=== PATIENT | female | born 1980 ===

== ENCOUNTER 2019-05-21 08:07 | Day surgery (SDC) | payer OTHER ==
[2019-05-21] MEDS ORDERED: PROPOFOL 10 MG/ML VIAL IV ONE (08:08)
[2019-05-21] MEDS ORDERED: LIDOCAINE 2% MDV (20MG/ML) 20ML VIAL IV ONE (08:08)
--- NOTE | 2019-05-22 06:40 | Operative Note ---
OPERATION: COLONOSCOPY with ileal biopsy and photo. PREOPERATIVE DIAGNOSIS: Crohn's. POSTOPERATIVE DIAGNOSES: 1. Ileitis. 2. Normal colon. COMPLICATIONS: None apparent. PREPARATION QUALITY: Good to excellent. ESTIMATED BLOOD LOSS: Minimum. SPECIMENS: Ileum. PROCEDURE: After informed consent was obtained from the patient, she was placed in the left lateral decubitus position in the endoscopy suite, sedated and monitored by the department of anesthesia. Digital rectal examination was unremarkable. A well-lubricated [id number] colonoscope was inserted into the rectum and advanced to the cecum. The cecum was unremarkable. The ileocecal valve and appendiceal orifice appeared normal. The ileocecal valve was cannulated revealing some mild ileal inflammation with superficial ulcerations and erythema. Biopsies and photographs were taken. The cecum, cecal bulb, ileocecal valve, appendiceal orifice, ascending colon, transverse colon, descending colon, sigmoid colon, and rectum were carefully inspected. No polyps, mass lesions, or inflammation was seen throughout the length of the colon. J-turn views of the anorectum were unremarkable. The endoscope was straightened, the rectal ampulla deflated, and the endoscope was removed. RECOMMENDATIONS: The patient should resume her medications and diet and follow up with her specialist at [facility]. It should be noted that she did apparently have approval for starting Stelara. We will await recommendations from the surgical team at [facility] before initiating a biologic. As always, thank you for allowing me to participate in the healthcare of your patients. DAE
== END 2019-05-21 10:15 | disposition home or self-care (01) ==
LOC: HOP 08:07
PROVIDERS: ATTEND Internal Medicine Gastroenterology
DX: K50.00 Crohn's disease of small intestine without complications (principal)
CPT/HCPCS: 81025

== ENCOUNTER 2019-06-10 16:08 | Emergency (ER) | payer OTHER ==
--- NOTE | 2019-06-10 18:34 | Emergency Department Record ---
History of Present Illness - General Chief Complaint: Wound, check Stated Complaint: SURGERY WOUND REOPENING Time Seen by Provider: 06/10/19 18:21 Source: Patient, RN notes reviewed - History of Present Illness Initial Comments: patient has a small dehisence in the umbilical area of abdomen and no drainage she states it feels like it is pulling apart and her stables came out yesterday by her family Dr Astudillo and her surgery was done at the [facility] 2 weeks ago for resection of small bowel for a a stricture after Crohn's disease. This is her third abdominal surgery. Onset/Timin -: Hour(s) Initial Visit For: Laceration Returns Today for: Other Associated Symptoms: None - Related Data Home Medications Medication Instructions Recorded Confirmed Last Taken Azathioprine [Imuran] 175 mg PO DAILY 06/10/19 06/10/19 06/09/19 Diphenhydramine HCl [Benadryl] 75 mg PO QHS 06/10/19 06/10/19 06/09/19 Melatonin 10 mg PO QHS 06/10/19 06/10/19 06/09/19 Methocarbamol [Robaxin] 500 mg PO BID 06/10/19 06/10/19 06/10/19 Omeprazole 40 mg PO DAILY 06/10/19 06/10/19 06/09/19 Ondansetron HCl [Zofran] 4 mg PO DAILY PRN 06/10/19 06/10/19 06/09/19 Oxycodone HCl 5 mg PO QID 06/10/19 06/10/19 06/10/19 Valacyclovir HCl [Valacyclovir] 1,000 mg PO DAILY 06/10/19 06/10/19 06/09/19 Previous Rx's Medication Instructions Recorded Clindamycin HCl 300 mg PO Q8HR #30 capsule 06/10/19 Allergies Allergy/AdvReac Type Severity Reaction Status Date / Time cefazolin [From Kefzol] AdvReac FLUSHING Verified 06/10/19 17:28 infliximab [From Remicade] AdvReac FATIGUE Verified 06/10/19 17:28 meperidine [From Demerol] AdvReac FLUSHING Verified 06/10/19 17:28 metronidazole [From Flagyl] AdvReac FLUSHING Verified 06/10/19 17:28 Travel/Exposure Screening - Travel/Exposure Within Last 30 Days Have you traveled within the last 30 days?: Yes Additional Travel Detail:: [place] - Travel/Exposure Within Last Year Have you traveled outside the [place] in the last year?: No - Additonal Travel/Exposure Details Have you been exposed to anyone with a communicable illness?: No - Travel Symptoms Symptom Screening: None Review of Systems Reviewed: No additional complaints except as noted below Constitutional: Reports: As per HPI. Denies: Chills, Fever, Malaise, Night sweats, Weakness, Weight change Eyes: Reports: As per HPI. Denies: Eye discharge, Eye pain, Photophobia, Vision change ENT: Reports: As per HPI. Denies: Congestion, Dental pain, Ear pain, Epistaxis, Hearing loss, Throat pain Respiratory: Reports: As per HPI. Denies: Cough, Dyspnea, Hemoptysis, Stridor, Wheezes Cardiovascular: Reports: As per HPI. Denies: Arrhythmia, Chest pain, Dyspnea on exertion, Edema, Murmurs, Orthopnea, Palpitations, Paroxysmal nocturnal dyspnea, Rheumatic Fever, Syncope Endocrine: Reports: As per HPI. Denies: Fatigue, Heat or cold intolerance, Polydipsia, Polyuria Gastrointestinal: Reports: As per HPI. Denies: Abdominal pain, Constipation, Diarrhea, Hematemesis, Hematochezia, Melena, Nausea, Vomiting Genitourinary: Reports: As per HPI. Denies: Abnormal menses, Discharge, Dyspareunia, Dysuria, Frequency, Hematuria, Incontinence, Retention, Urgency Musculoskeletal: Reports: As per HPI. Denies: Arthralgia, Back pain, Gout, Joint swelling, Myalgia, Neck pain Skin: Reports: As per HPI. Denies: Bruising, Change in color, Change in hair/nails, Lesions, Pruritus, Rash Neurological: Reports: As per HPI. Denies: Abnormal gait, Confusion, Headache, Numbness, Paresthesias, Seizure, Tingling, Tremors, Vertigo, Weakness Psychiatric: Reports: As per HPI. Denies: Anxiety, Auditory hallucinations, De pression, Homicidal thoughts, Suicidal thoughts, Visual hallucinations Hematological/Lymphatic: Reports: As per HPI. Denies: Anemia, Blood Clots, Easy bleeding, Easy bruising, Swollen glands Past Medical History - SOCIAL HISTORY Smoking Status: Former smoker Alcohol Use: Occasional Drug Use: None - RESPIRATORY Hx Respiratory Disorders: No - CARDIOVASCULAR Hx Cardio Disorders: No - NEURO Hx Neuro Disorders: No - GI Hx GI Disorders: Yes Hx Crohn's Disease: Yes Hx Reflux: Yes Hx Ulcer: Yes - Hx Genitourinary Disorders: Yes Hx Kidney Stones: Yes - ENDOCRINE Hx Endocrine Disorders: No - MUSCULOSKELETAL Hx Musculoskeletal Disorders: No - PSYCH Hx Psych Problems: No - HEMATOLOGY/ONCOLOGY Hx Hematology/Oncology Disorders: Yes Hx Blood Transfusions: Yes Hx Blood Transfusion Reaction: No Family Medical History Any Significant Family History?: No Physical Exam - General General Appearance: Alert, Oriented x3, Cooperative, No acute distress - Head Head exam: Normal inspection - Eye Eye exam: Normal appearance, PERRL Pupils: Normal accommodation - ENT ENT exam: Normal exam, Mucous membranes moist, Normal external ear exam, Normal orophraynx, TM's normal bilaterally Ear exam: Normal external inspection. negative: External canal tenderness Nasal Exam: Normal inspection. negative: Discharge, Sinus tenderness Mouth exam: Normal external inspection, Tongue normal Teeth exam: Normal inspection. negative: Dental caries Throat exam: Normal inspection. negative: Tonsillar erythema, Tonsillar exudate - Neck Neck exam: Normal inspection, Full ROM. negative: Tenderness - Respiratory Respiratory exam: Normal lung sounds bilaterally. negative: Respiratory distress - Cardiovascular Cardiovascular Exam: Regular rate, Normal rhythm, Normal heart sounds - GI/Abdominal GI/Abdominal exam: Soft, Normal bowel sounds, Tenderness (no drainage and slight discomfort in the incision and she thinks the wound is spreading since the kaylie came out) - Rectal Rectal exam: Deferred - exam: Deferred - Extremities Extremities exam: Normal inspection, Full ROM, Normal capillary refill. negative: Tenderness - Back Back exam: Reports: Normal inspection, Full ROM. Denies: Muscle spasm, Rash noted, Tenderness - Neurological Neurological exam: Alert, Normal gait, Oriented X3, Reflexes normal - Psychiatric Psychiatric exam: Normal affect, Normal mood - Skin Skin exam: Dry, Intact, Normal color, Warm Course Vital Signs 06/10/19 17:16 Temperature 98.1 F Pulse Rate 80 Respiratory 16 Rate Blood Pressure 120/70 Pulse Ox 99 - Reevaluation(s) Reevaluation #1: patient said her reaction to kefzol was an anxiety and flushing and she also had demerol and the Dr at the time said probably the demeral. 06/10/19 18:41 Reevaluation #2: discussed case with Dr Santoyo and he said he would get her in with a message to [facility]a 06/10/19 19:17 Medical Decision Making - Lab Data Result diagrams: 06/10/19 18:40 Disposition Clinical Impression: Wound dehiscence Disposition: Home, Self-Care Condition: (1) Good Instructions: Wound Dehiscence (ED) Additional Instructions: please call the [facility] surgeon tomorrow for a recheck of abdomen call Dr Astudillo' tomorrow for reevaluation no ice or heat on the abdomen Prescriptions: Clindamycin HCl 300 mg PO Q8HR #30 capsule Forms: Patient Portal Access Time of Disposition: 18:40 Quality - Quality Measures Quality Measures: N/A - Blood Pressure Screening Does Patient Have Any of the Following: No Blood Pressure Classification: Pre-Hypertensive BP Reading Systolic Measurement: 120 Diastolic Measurement: 70 Screening for High Blood Pressure: < Pre-Hypertensive BP, F/U Documented > [G8950] Pre-Hypertensive Follow-up Interventions: Referral to alternative/primary care provider.
[2019-06-10 18:51] LABS: ABSOLUTE NEUTROPHIL COUNT 3.64; BASO % 0.9 % (0-6); EOS % 1.5 % (0-6); GRAN % 68.5 % (47-80); HEMATOCRIT 32.8 % (35.0-47.0); HEMOGLOBIN 10.9 gm/dl (11.6-16.0); MEAN CELL VOLUME 96.2 fl (81-97); MEAN CORPUSCULAR HEMOGLOBIN 31.9 pg (27-33); MEAN CORPUSCULAR HGB CONC 33.2 g/dl (32-36); MEAN PLATELET VOLUME 8.2 fl (7.4-10.4); MONO % 11.1 % (0-9); PLATELET COUNT 462 K/uL (130-400); RED BLOOD COUNT 3.41 M/uL (3.80-5.40); RED CELL DISTRIBUTION WIDTH 13.3 % (11.5-14.5); WHITE BLOOD COUNT W/O DIFF 5.3 K/uL (4.2-12.2)
== END 2019-06-10 19:25 | disposition home or self-care (01) ==
LOC: ER 16:08
DX: T81.31XA Disruption of external operation (surgical) wound, not elsewhere classified, initial encounter (principal); Y83.8 Other surgical procedures as the cause of abnormal reaction of the patient, or of later complication, without mention of misadventure at the time of the procedure; Z87.891 Personal history of nicotine dependence
CPT/HCPCS: 85025; 99283